=== PATIENT | female | born 1955 | race Caucasian/White ===

== ENCOUNTER 2020-05-10 15:09 | Outpatient (REF) | payer MEDICARE, SELFPAY | END 2020-05-10 15:10 | disposition home or self-care (01) | LOC: LBN 15:09 | PROVIDERS: Visit Provider Physician Assistant | DX: N39.0 Urinary tract infection, site not specified (principal) | CPT/HCPCS: 87086 ==

== ENCOUNTER 2020-06-15 03:25 | Outpatient (CLI) | payer MEDICARE, SELFPAY ==
[2020-06-15 12:34] LABS: Calculated LDL 196 mg/dL (<100); Cholesterol 295 mg/dL (<200); HDL Cholesterol 64 mg/dL (40-60); Triglyceride 177 mg/dL (<150)
== END 2020-06-15 03:26 | disposition home or self-care (01) ==
LOC: LOS 03:25
PROVIDERS: PCP Nurse Practitioner Family; Visit Provider Nurse Practitioner Family
DX: E78.5 Hyperlipidemia, unspecified (principal)
CPT/HCPCS: 36415; 80061

== ENCOUNTER → 2020-09-27 08:52 | Outpatient (BNVA) | payer MEDICARE, SELFPAY | PROVIDERS: PCP Nurse Practitioner Family; Referring Provider Nurse Practitioner Family; Visit Provider Surgery | DX: R69 Illness, unspecified (principal) ==

== ENCOUNTER 2020-09-27 10:34 | Outpatient (REF) | payer MEDICARE, SELFPAY ==
[2020-09-27 11:17] LABS: Abs Immature Grans 0.02 10^3/uL (0.0-0.06); Absolute Basophil Count 0.04 10^3/uL (0.0-0.2); Absolute Eosinophil Count 0.16 10^3/uL (0.0-0.7); Absolute Lymphocyte Count 1.41 10^3/uL (1.2-3.4); Absolute Monocyte Count 0.48 10^3/uL (0.1-0.8); Absolute Neutrophil Count 3.49 10^3/uL (1.2-6.7); Basophils % 0.7; Eosinophils % 2.9; HCT 39.9 % (36.0-46.0); HGB 13.6 g/dL (11.2-15.7); Immature Grans % 0.4; Lymphocytes % 25.2; MCH 33.5 pg (27.0-33.0); MCHC 34.1 % (32.0-36.0); MCV 98.3 fL (80-95); MPV 10.1 fL (8.0-11.0); Monocytes % 8.6; Neutrophils % 62.2; Nucleated RBC 0 %; Platelet Count 245 10^3/uL (130-400); RBC 4.06 10^6/uL (3.93-5.22); RDW 11.9 % (11.7-14.6); RDW-SD 43.1 fL
[2020-09-27 11:30] LABS: Hemoglobin A1C 5.3 % (<5.7)
[2020-09-27 11:36] LABS: ALT 29 U/L (14-59); AST 26 U/L (15-37); Alkaline Phosphatase 65 U/L (46-116); Anion Gap 9.6 mmol/L (3-11); BUN 17 mg/dL (7-18); Bilirubin, Total 0.6 mg/dL (0.2-1.0); CO2 27.4 mmol/L (21.0-32.0); CREATININE 0.9 mg/dL (0.55-1.02); Chloride 105 mmol/L (98-107); Glucose 96 mg/dL (74-106); Potassium 4.1 mmol/L (3.5-5.1); Sodium 142 mmol/L (136-145); Total Protein 7.1 g/dL (6.4-8.2)
== END 2020-09-27 10:35 | disposition home or self-care (01) ==
LOC: LBN 10:34
PROVIDERS: Surgery; PCP Nurse Practitioner Family; Visit Provider Nurse Practitioner Family
DX: E78.5 Hyperlipidemia, unspecified (principal); R63.4 Abnormal weight loss; N39.41 Urge incontinence; K57.30 Diverticulosis of large intestine without perforation or abscess without bleeding; N36.2 Urethral caruncle; R79.89 Other specified abnormal findings of blood chemistry
CPT/HCPCS: 80053; 83036; 84443; 85025

== ENCOUNTER 2020-09-27 11:37 | Outpatient (CLI) | payer MEDICARE, SELFPAY ==
--- NOTE | 2020-09-27 10:09 | DI.RAD_ITS ---
Exam(s) XR CHEST 2V PA LATERAL EXAM: XR CHEST 2V PA LATERAL CLINICAL HISTORY: cough/smoke exposure/unexplained wt loss, R05, Z77.22. TECHNIQUE: 2D digital imaging was performed. COMPARISON: No exams were available for comparison FINDINGS: Heart size is normal. Retrocardiac hiatal hernia moderate size is noted. There are Sy rods in the thoracolumbar spine. There is oblique platelike atelectasis in the right lung base. Probable extension of the cardiac fat pad at this level. Nodular density noted in the left lung base although there is possibly this may be the breast nipple. IMPRESSION: Oblique platelike atelectasis in the right lung base. Possible nodule left lung base versus breast nipple. Recommend repeating the frontal view with metal lic nipple markers in place. DATA REPOSITORY: RADIATION DOSE DELIVERED:
== END 2020-09-27 11:57 ==
PROVIDERS: PCP Nurse Practitioner Family; Visit Provider Surgery
DX: R05 Cough (principal); Z77.22 Contact with and (suspected) exposure to environmental tobacco smoke (acute) (chronic); R63.4 Abnormal weight loss; R19.4 Change in bowel habit
CPT/HCPCS: 99214; 71046

== ENCOUNTER 2020-09-29 07:03 | Day surgery (SDC) | payer MEDICARE, SELFPAY ==
[2020-09-29 07:22] VITALS: BP 134/83; PULSE 59; RESP 16; TEMP 36.6; O2SAT 98
[2020-09-29] MEDS: Lactated Ringers 1,000 ML 80 ML IV (07:54)
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
[2020-09-29 08:29] VITALS: BMI 23.2
--- NOTE | 2020-09-29 08:33 | PDOC.DSDIS_ITS ---
Discharge Plan Disposition Patient Disposition: HOME Condition: Good Discharge Details Reason For Visit: colon scope Attending Provider: Neva Velasco Primary Care Provider: Nelson Tolentino Home Meds and New Rx's Prescriptions: No Action omega-3 fatty acids [Fish Oil Concentrate] 1,000 mg capsule 1,000 mg PO DAILY RF: 0 citalopram 20 mg tablet 20 mg PO DAILY Qty: 90 RF: 4 ibuprofen 200 MG capsule 200 mg PO 3 TABS PRN RF: 0 acetaminophen 500 MG tablet 500 mg PO PRN RF: 0 simvastatin 20 mg tablet 20 mg PO DAILY Qty: 90 RF: 4 Discharge Instructions Additional Instructions: DSU Colonoscopy Post- Op Instructions Instructions for Everyone who is given Anesthesia: For your safety, please do the following for the next twenty-four (24) hours: *Do Not operate a motor vehicle (car, truck, motorcycle, etc.) *Do Not drink alcoholic beverages or use any recreational drugs for the first 24 hours or while taking pain medications. The medications in your body may have a reaction that can be dangerous. *Do Not make any important decisions or sign any important papers. Findings: x5 polyps diverticula- mild No ASA/NSAID's for 72 hrs. Follow up:Repeat scope in 5 yrs time 1. No lifting over 20 pounds or strenuous activity for the first 24 hours after your procedure. After 24 hours there are no restrictions on your activity but you may feel fatigued for a few days. 2. After you arrive home you may have a light meal and return to your normal diet as you can tolerate it without feeling sick to your stomach. 3. You may have a bloated, gaseous feeling in your belly (abdomen) after a colonoscopy. Passing gas and belching will help. Walking or lying down on your left side with your knees flexed may relieve the discomfort. Call the office at [phone] (Office) or [phone] (Hospital) right away if you notice any of the following: a.Vomiting of blood or ?coffee ground stools?. b.Rectal bleeding 1Tbsp, blood clots or continuous bleeding. c.Severe belly (abdominal) pain. d.A hard distended belly (abdomen) and an inability to pass gas. 4. Please don?t expect to have a normal BM (bowel movement) for 2-3 days after your procedure. 5. If there are questions regarding the findings of your procedure, please contact your doctor 6. If you are unable to contact your doctor with a problem, contact the hospital at [phone]. 7. Continue all your regular medications unless directed otherwise. I understand the above instructions and have no questions. Signature of Patient or Adult Escort Name of Responsible Adult Escort Signature of Nurse Date/Time Activity:: see above Shower/Bathe:: 24 hours Diet:: see above Discharge Orders Discharge Orders: Discharge Order (Routine); Ordered 09/28/20 Ordered By: Neva Velasco DS: Diagnosis Discharge Diagnosis (1) Diverticula of colon: Status: Acute (2) Adenomatous polyps: Status: Acute
--- NOTE | 2020-09-29 08:34 | W.COLOREPORT ---
Date of service: 09/29/20 Time of Service: 09:00 Colonoscopy Report Date of procedure: 09/29/20 Pre-op diagnosis general: weight loss/change in bowel habits Procedure: polypectomy w/ cold forcept x5 Surgeon: Neva Velasco Anesthesia Type: General:No Airway Estimated blood loss (mL): 1 Pathology: other Complications: None Disposition: same day Prep: Miralax/Dulcolax Retraction Time: 12 Procedure Description: After informed consent was obtained the patient was taken to the procedure room and placed in a left decubitous position. Monitors were applied and a time out was done. The patients name, date of , procedure, allergies to medications and metal in their body was reviewed. The patient was then sedated. Once sedated and comfortable a rectal exam was done. External hemorrhoidal tags. No without internal exam revealed a normal sphincter tone and no palpable masses. The scope was then introduced and retrofelexed. internal hemorrhoids were identified. The scope was then advanced to the cecum w/out difficulty. The TI and appendiceal orifice were identified. The prep was good . The scope was then slowly retracted over 12 minutes back into the rectum. There are x3 polyps at 80 cm removed with a single bite of cold forcep. These polyps are all flat less than 5 mm. All specimen is retrieved and no bleeding is noted. There is a less than 5 mm flat polyp in the rectum that is removed with cold biopsy forcep. There is a 1.75 mm polyp that is flat and at 30 cm and is removed with 2 bites of cold forcep. She has minor diverticular disease that does carry all the way over to the cecum. There is no signs of bleeding or infection. She has minor external hemorrhoids and no internal hemorrhoids. There is no signs of active bleeding or infection. Random biopsies are taken in the cecum 40 cm in the rectum. The scope was removed and the patient was woken up and taken back to Same day surgery in stable condition. The patient tolerated the procedure well and there were no immediate complications. Follow up: The patient should follow up in 5 years unless they develop changes in bowel habits or other new gastrointestinal complaints.
--- NOTE | 2020-09-29 08:50 | BOWEL_PTH ---
PATIENT: Allie Moeller LOC: [facility] U#:[id number] AGE/SX: 65/F ROOM: RE09/29/[address]: Neva Velasco : 1955 BED: DIS: 09/29/2020 SPEC #: [id number] RECD: 09/29/20 11:49 STATUS: BERNADETTE REChaparro #: [id number] FELICIA: 09/29/20 08:[address]: Neva Velasco DEPT: Surgical Specimen RECD BY: Bridget Matthews ENTERED: 09/29/20 11:55 SP TYPE: Bowel OTHR DR: Nelson Tolentino, LUMP ROLLER Tissues: 1 - BIOPSY BOWEL 2 - BIOPSY BOWEL 3 - BIOPSY BOWEL 4 - BIOPSY BOWEL 5 - BIOPSY BOWEL 6 - BIOPSY BOWEL Procedures: GROSS AND MICRO LEVEL 4 Comments: [id number]
[2020-09-29 09:15] VITALS: BP 97/63; PULSE 58; RESP 16; TEMP 36.3; O2SAT 98
--- NOTE | 2020-09-29 09:21 | W.ANESPOSTOP ---
Postoperative Evaluation Date, Time and Location Date Performed: 09/29/20 Time Performed: : Patient Location: Day Surgery Unit Vital Signs Most Recent Imported Vital Signs: Most Recent Vital Signs Temp Pulse Resp BP Pulse Ox 36.3 C L 58 L 16 97/63 L 98 09/29/20 09:15 09/29/20 09:15 09/29/20 09:15 09/29/20 09:15 09/29/20 09:15 Pain Score Most Recent Pain Score: Most Recent Pain Score Pain Level 0 09/29/20 09:15 Assessment Mental Status: Awake (Alert & Oriented to Patient Baseline) Airway and Respiratory Function: Patent airway with normal (patient baseline) respiratory exam Cardiovascular Function: Hemodynamically Stable Hydration Status: Adequately Hydrated Nausea & Vomiting: No Nausea or Vomiting Pain: Pt. Denies Any Pain Peripheral Nerve Block: Patient did not receive a nerve block
[2020-09-29 09:42] VITALS: RESP 16; TEMP 36.1; O2SAT 100
[2020-09-29 09:44] VITALS: BP 122/70; PULSE 47; RESP 16; TEMP 36.2; O2SAT 100
== END 2020-09-29 10:45 | disposition home or self-care (01) ==
PROVIDERS: PCP Nurse Practitioner Family; Visit Provider Surgery
PROC: 0DJD8ZZ Inspection of Lower Intestinal Tract, Via Natural or Artificial Opening Endoscopic (ICD-10-PCS; CPT 45378; principal; 2020-09-29 08:15)
DX: R19.4 Change in bowel habit (principal); R63.4 Abnormal weight loss; D12.8 Benign neoplasm of rectum; D12.5 Benign neoplasm of sigmoid colon; D12.4 Benign neoplasm of descending colon
CPT/HCPCS: 45380; 88305

== ENCOUNTER 2020-11-03 04:42 | Outpatient (CLI) | payer MEDICARE, SELFPAY ==
--- NOTE | 2020-11-03 07:15 | DI.RAD_ITS ---
Exam(s) XR CHEST 1V IN DI DEPT EXAM: XR CHEST 1V IN DI DEPT CLINICAL HISTORY: f/u from 09/27/20 xray, w/metallic nipple markers,R93.89,? NODULE. TECHNIQUE: 2D digital imaging was performed. COMPARISON: CR XR CHEST 2V PA LATERAL from 09/27/2020 FINDINGS: Sy rods are again noted. Heart size remains normal. Moderate size retrocardiac hiatal hernia noted, unchanged in size. No new infiltrates nor pleural effusions. No pulmonary edema. No pneumothorax IMPRESSION: No acute pulmonary findings on this single AP portable view of the chest. Hiatal hernia again noted, unchanged in size. DATA REPOSITORY: RADIATION DOSE DELIVERED: All CT scans at this facility use at least one of these dose optimization techniques: automated exposure control; mA and/or kV adjustment per patient size (includes targeted e xams where dose is matched to clinical indication); or iterative reconstruction.
== END 2020-11-03 05:02 ==
PROVIDERS: PCP Nurse Practitioner Family; Visit Provider Surgery
DX: K44.9 Diaphragmatic hernia without obstruction or gangrene; R93.89 Abnormal findings on diagnostic imaging of other specified body structures
CPT/HCPCS: 71045

== ENCOUNTER 2021-01-02 03:49 | Outpatient (CLI) | payer MEDICARE, SELFPAY ==
[2021-01-02 13:14] LABS: Calculated LDL 172 mg/dL (<100); Cholesterol 278 mg/dL (<200); HDL Cholesterol 75 mg/dL (40-60); Triglyceride 157 mg/dL (<150)
== END 2021-01-02 03:50 | disposition home or self-care (01) ==
LOC: LOS 03:51
PROVIDERS: PCP Nurse Practitioner Family; Visit Provider Nurse Practitioner Family
DX: E78.2 Mixed hyperlipidemia (principal)
CPT/HCPCS: 36415; 80061

== ENCOUNTER 2021-06-11 19:17 | Outpatient (REF) | payer MEDICARE, SELFPAY | END 2021-06-11 19:18 | disposition home or self-care (01) | LOC: LBN 19:17 | PROVIDERS: PCP Nurse Practitioner Family; Visit Provider Nurse Practitioner Family | DX: N39.41 Urge incontinence (principal) | CPT/HCPCS: 87077; 87086; 87186 ==

== ENCOUNTER 2021-07-11 00:58 | Outpatient (CLI) | payer MEDICARE, SELFPAY ==
--- NOTE | 2021-07-11 15:43 | DI.MAMMO_ITS ---
Exam(s) MAMMO SCREENING EXAM: MAMMO SCREENING CLINICAL HISTORY: screening,z12.39. TECHNIQUE: Bilateral full field digital CC and MLO mammographic images were obtained with 3D tomosyn thesis and utilizing computer aided detection (CAD). COMPARISON: Prior mammograms were reviewed, the most recent being September 2017. FINDINGS: The fibroglandular tissue pattern is again noted be somewhat dense, this decreasing the sensitivity m ammogram for finding in lesions There are no CAD designations. There are no new spiculated masses nor malignant appearing microcalcification groups. There is no significant architectural distortion nor skin thickening-retraction. IMPRESSION: Dense bilateral fibroglandular tissue. No obvious radiographic evidence of malignancy nor significan t change compared to prior mammograms. BI-RADS Category 2 - Benign Findings Breast Density - Category C - Heterogeneously dense Breast density Category C or D implies that the patient has dense breast tissue. Dense breast tissue can make it harder to find cancer on a mammogram. Dense breast tissue is also associated with an incr eased risk of breast cancer. This information about the result of the mammogram report was provided to the patient to raise their awareness. Use this report when you speak with the patient about their risks for breast cancer, which includes their family history. At that time, you may recommend additional screening tests (Ultrasoun d or MRI) as these tests may add significant information. A negative radiographic report should not delay biopsy if a dominant or clinically suspicious mass is present. Up to ten percent of cancers are not identified on mammography. A negative report may reinforce clinical impression. Adenosis and dense breasts may obscure an underlying neoplasm. False positive reports average 6 to 10%. Patient will receive a letter notifying them of these results.
== END 2021-07-11 01:18 ==
PROVIDERS: PCP Nurse Practitioner Family; Visit Provider Nurse Practitioner Family
DX: Z12.31 Encounter for screening mammogram for malignant neoplasm of breast (principal)
CPT/HCPCS: 77063; 77067

== ENCOUNTER → 2021-08-02 01:57 | Outpatient (CLI) | payer MEDICARE, SELFPAY ==
--- NOTE | 2021-08-02 06:30 | DI.US_ITS ---
Exam(s) US PELVIS TRANSVAGINAL EXAM: US PELVIS TRANSVAGINAL CLINICAL HISTORY: object in vagina vs mass in pelvis,? LLQ bump,remnant of suture,r19.04 TECHNIQUE: Ultrasound performed using standard protocol. COMPARISON: No exams were available for comparison FINDINGS: Pelvic ultrasound was performed transabdominally and transvaginally. The patient has reportedly had prior hysterectomy and oophorectomy. No vaginal mass or foreign body identified. No mass in the pel vis. Unremarkable appearance of the kidneys. IMPRESSION: Negative ultrasound examination post hysterectomy and oophorectomy. DATA REPOSITORY:
== END ==
PROVIDERS: PCP Nurse Practitioner Family; Visit Provider Obstetrics & Gynecology Gynecology
DX: Z90.710 Acquired absence of both cervix and uterus; Z90.722 Acquired absence of ovaries, bilateral; R19.04 Left lower quadrant abdominal swelling, mass and lump
CPT/HCPCS: 76830; 76856

== ENCOUNTER 2021-11-12 03:51 | Outpatient (CLI) | payer MEDICARE, SELFPAY ==
[2021-11-12 12:59] LABS: Calculated LDL 141 mg/dL (<100); Cholesterol 236 mg/dL (<200); HDL Cholesterol 70 mg/dL (40-60); Triglyceride 126 mg/dL (<150)
== END 2021-11-12 03:52 | disposition home or self-care (01) ==
LOC: LOS 03:51
PROVIDERS: PCP Nurse Practitioner Family; Visit Provider Nurse Practitioner Family
DX: E78.2 Mixed hyperlipidemia (principal)
CPT/HCPCS: 36415; 80061

== ENCOUNTER 2022-01-22 00:38 | Emergency (ER) | payer MEDICARE, SELFPAY ==
[2022-01-22] VITALS (41 sets, daily range): BP systolic 110–135; BP diastolic 63–104; PULSE 57–75; RESP 9–25; TEMP 36; O2SAT 93–98
--- NOTE | 2022-01-22 00:45 | RT.EKG_ITS ---
APPROVED REPORT Exam: Resting ECG Reason for Exam: dry heaves Patient Location: E HR:76 bpm ECG Measurements Heart Rate 76 AXIS MD 144 P 58 QRSd 99 QRS 79 QT 412 T -70 QTc 461 Conclusion Sinus rhythm...normal P axis, V-rate 60- 99 Atrial premature complexes...SV complexes w/ short R-R intvls Nonspecific T abnormalities, diffuse leads...T <-0.10mV, ant/lat/inf PHysician: Sinus rhythm, rate 76, intervals stable, inverted T waves in lead III, aVF, V3, V4. No si gnificant ST elevation or depression. No STEMI. No prior EKG for comparison
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
--- NOTE | 2022-01-22 01:00 | DI.CT_ITS ---
Exam(s) CT THORAX ABD/PEL CTA EXAM: CT THORAX ABD/PEL CTA CLINICAL HISTORY: epigastric pain/lump, r/o anyurism. TECHNIQUE: Imaging Protocol: Axial CT angiography was performed with multi-slice acquisition and m ulti-planar and/or 3D reconstructions. CONTRAST MATERIAL: Intravenous: Omnipaque 350 contrast volume:100 mL Oral: No COMPARISON: No exams were available for comparison FINDINGS: CHEST: Tracheobronchial tree: Patent where visualized. Pulmonary parenchyma: There is dependent atelectasis. No focal consolidating infiltrate is identifie d. No architectural distortion. Pulmonary Arteries: No evidence of filling defect to suggest pulmonary emboli. Mediastinum and Doreen: No dominant adenopathy or fluid collection. There is a large hiatal hernia. Visualized thyroid: Unremarkable. Pleura: No effusion or pneumothorax. Heart: The heart is not dilated. No coronary artery calcifications are seen. No pericardial effusion. Aorta: Thoracic aorta non-dilated. Atherosclerosis is present. No evidence of dissection. Soft Tissues: Unremarkable. Bones: Within normal limits for the patient's age. ABDOMEN AND PELVIS: Abdomen: Celiac axis/mesenteric arteries: No evidence of occlusion or significant stenosis. Renal Arteries: No evidence of occlusion or significant stenosis. There is a single renal artery per fusing each kidney. Aorta: No evidence of occlusion or significant stenosis. No aneurysm or dissection. Atherosclerosi s is present. Pelvis: Iliac Arteries: No evidence of occlusion or significant stenosis. Common Femoral Arteries: No evidence of occlusion or significant stenosis. ABDOMEN: Liver: Normal density. No measurable mass. Gallbladder and Biliary Tract: No radiodense calculus or dilation. Pancreas: Normal density, no abnormal calcifications or inflammatory process. Spleen: Normal. Adrenals: No masses seen. Kidneys: Normal size, contour and axis. No radiodense stones or obstructive uropathy. No masses seen. Bowel: No obstruction or bowel wall thickening. No evidence of appendicitis. There are diverticula s cattered throughout the colon, but no evidence of acute diverticulitis. Peritoneal Cavity: No ascites, collection or mesenteric inflammatory response. No free air. Lymph Nodes: Within normal limits. Bones: Within normal limits for the patient's age. There are orthopedic rods in the posterior spine spanning the lower thoracic and upper lumbar spine. There is an old L1 compression fracture deformity . Soft Tissues: Unremarkable. PELVIS: Bladder: Symmetric distention, no gross wall thickening. Reproductive Organs: Status post hysterectomy. Lymph Nodes: Within normal limits. Bones: Within normal limits for the patient's age. IMPRESSION: 1. No evidence of pulmonary embolism, thoracic aortic dissection or aneurysm. 2. No evidence of abdominal aortic aneurysm or dissection. No significant arterial stenosis. 3. No acute pulmonary process. 4. No acute abdominal or pelvic process. RADIATION DOSE DELIVERED: 649.13mGy.cm Total DLP DATA REPOSITORY: All CT scans at this facility are submitted to the National Radiology Data Registry (NRDR) Dose Index Registry (DIR) with the [employer] (ACR). RADIATION OPTIMIZATION: All CT scans at this facility use at least one of these dose optimization te chniques: automated exposure control; mA and/or kV adjustment per patient size (includes targeted exa ms where dose is matched to clinical indication); or iterative reconstruction.
[2022-01-22 01:14] LABS: Abs Immature Grans 0.02 10^3/uL (0.0-0.06); Absolute Basophil Count 0.07 10^3/uL (0.0-0.2); Absolute Eosinophil Count 0.53 10^3/uL (0.0-0.7); Absolute Lymphocyte Count 3.05 10^3/uL (1.2-3.4); Absolute Monocyte Count 0.57 10^3/uL (0.1-0.8); Absolute Neutrophil Count 2.23 10^3/uL (1.2-6.7); Basophils % 1.1; Eosinophils % 8.2; HCT 42.3 % (36.0-46.0); Immature Grans % 0.3; Lymphocytes % 47.1; MCH 34.2 pg (27.0-33.0); MCHC 35.5 % (32.0-36.0); MCV 97 fL (80-95); MPV 9.3 fL (8.0-11.0); Monocytes % 8.8; Neutrophils % 34.5; Platelet Count 286 10^3/uL (130-400); RBC 4.38 10^6/uL (3.93-5.22); RDW-SD 42.8 fL; WBC 6.47 10^3/uL (4.4-10.8)
[2022-01-22] MEDS: Normal Saline 500 ML IV (01:19)
[2022-01-22] MEDS: Ondansetron 4 MG/2 ML VIAL IVP (01:20)
[2022-01-22 01:33] LABS: ALT 21 U/L (14-59); AST 19 U/L (15-37); Alkaline Phosphatase 84 U/L (46-116); Anion Gap 9.1 mmol/L (3-11); BUN 18 mg/dL (7-18); Bilirubin, Total 0.4 mg/dL (0.2-1.0); CO2 28.9 mmol/L (21.0-32.0); CREATININE 0.8 mg/dL (0.55-1.02); Calcium 8.9 mg/dL (8.5-10.1); Chloride 103 mmol/L (98-107); Estimated GFR 80.71 (mL/min/1.73m2); Glucose 115 mg/dL (74-106); Lipase 107 U/L (73-393); Potassium 4.1 mmol/L (3.5-5.1); Sodium 141 mmol/L (136-145); Total Protein 7.7 g/dL (6.4-8.2); Troponin I < 50 ng/L (<or=60)
[2022-01-22] MEDS: Omnipaque 350 MG/ML 100 ML BTL IJ (02:25)
[2022-01-22 02:44] LABS: Bilirubin Negative (Negative); Blood Small (Negative); Clarity Clear (Clear); Glucose Negative (Negative); Ketones Negative (Negative); Leukocyte Esterase Negative (Negative); Nitrite Negative (Negative); Specific Gravity 1.015 (1.005-1.025); Urobilinogen 0.2 EU/dL (Up TO 0.2)
[2022-01-22 02:55] LABS: Bacteria Few HPF (Negative); C & S Indicated? No; Crystals Negative HPF (Negative); Epithelial Cells Rare HPF (Negative); Mucus Trace (Negative); WBC 0-2 HPF (0-5)
--- NOTE | 2022-01-22 03:27 | DI.VRAD_ITS ---
PROCEDURE INFORMATION: Exam: CTA Chest With Contrast CTA Abdomen and Pelvis With Contrast Exam date and time: 01/22/2022 2:18 AM Age: 66 years old Clinical indication: Other: Epigastric pain/lump, R/O anyurism; Abdominal pain; Prior surgery; Surgery date: 6+ months; Surgery type: Spinal surgery, appendectomy TECHNIQUE: Imaging protocol: Computed tomographic angiography of the chest with contrast. Computed tomographic angiography of the abdomen and pelvis with contrast. 3D rendering (Not supervised by radiologist): MIP and/or 3D reconstructed images were created by the technologist. Radiation optimization: All CT scans at this facility use at least one of these dose optimization techniques: automated exposure control; mA and/or kV adjustment per patient size (includes targeted exams where dose is matched to clinical indication); or iterative reconstruction. Contrast material: OMNI 350; Contrast volume: 100 ml; Contrast route: INTRAVENOUS (IV); COMPARISON: CR XR CHEST 1V IN DI DEPT 11/03/2020 8:28 AM FINDINGS: VASCULATURE: Pulmonary arteries: Normal. No pulmonary emboli. Aorta: No aortic aneurysm. No aortic dissection. Mild plaque. Celiac trunk and mesenteric arteries: No occlusion or significant stenosis. Renal arteries: No occlusion or significant stenosis. Right iliac arteries: No occlusion or significant stenosis. Left iliac arteries: No occlusion or significant stenosis. CHEST: Lungs: Dependent ground-glass opacity noted in the left lower lobe. No specific consolidation. No bronchiectasis. No significant endobronchial mucus. Pleural spaces: Unremarkable. No pneumothorax. No pleural effusion. Heart: No cardiomegaly. No pericardial effusion. No coronary artery calcifications. Diaphragm: Moderate hiatal hernia. ABDOMEN AND PELVIS: Liver: No mass. Gallbladder and bile ducts: Unremarkable. No calcified stones. No ductal dilation. Pancreas: Unremarkable. No mass. No ductal dilation. Spleen: Normal early splenic enhancement. Adrenal glands: Unremarkable. No mass. Kidneys and ureters: Normal kidneys. No hydronephrosis. Stomach and bowel: Unremarkable stomach. Nondilated small bowel. No inflammatory changes observed around the colon. Scattered colonic diverticulosis noted. Appendix: No evidence of appendicitis. Intraperitoneal space: No free fluid. No free air. No abscess. Urinary bladder: Unremarkable. No mass. Reproductive: The uterus is surgically absent. Negative for adnexal mass or cyst. Lymph nodes: Unremarkable. No enlarged lymph nodes. Bones/joints: Posterior fusion noted T9-L2. Fracture noted at T12. Exaggerated thoracic kyphosis. Moderate degenerative changes midthoracic spine. Moderate degenerative changes with endplate sclerosis L2-L3, inferior to the fusion. Transitional L5. Soft tissues: Unremarkable. IMPRESSION: 1. No pulmonary embolism. 2. No aortic dissection. 3. No aortic aneurysm. 4. No significant arterial stenosis. Dictated and Authenticated by: Tyrese Arnold MD. Ordering:CATALINO Snyder MD
--- NOTE | 2022-01-22 03:30 | RT.EKG_ITS ---
APPROVED REPORT Exam: Resting ECG Reason for Exam: chest pain Patient Location: E HR:63 bpm ECG Measurements Heart Rate 63 AXIS [place] 140 P 21 QRSd 94 QRS 52 QT 442 T -36 QTc 449 Conclusion Sinus rhythm...normal P axis, V-rate 60- 99 Atrial premature complex...SV complex w/ short R-R interval Nonspecific T abnormalities, diffuse leads...T <-0.10mV, ant/lat/inf Physician: Inverted t waves unchanged, no stemi, stable
[2022-01-22 04:36] LABS: Troponin I < 50 ng/L (<or=60)
== END 2022-01-22 05:45 | disposition home or self-care (01) ==
PROVIDERS: Emergency Provider Student in an Organized Health Care Education/Training Program; PCP Nurse Practitioner Family
DX: R10.13 Epigastric pain (principal); K59.00 Constipation, unspecified; Z90.49 Acquired absence of other specified parts of digestive tract; Z77.22 Contact with and (suspected) exposure to environmental tobacco smoke (acute) (chronic); R11.0 Nausea; R07.9 Chest pain, unspecified
CPT/HCPCS: 71275; 80053; 83690; 93005; 93308; 96361; 96374; 99285; 74174; 81003; 81015; 84484; 85025; 93010; J2405; J3490

== ENCOUNTER 2024-08-11 02:07 | Outpatient (CLI) | payer MEDICARE, SELFPAY ==
[2024-08-11 12:43] LABS: Hemoglobin A1C 5.1 % (<5.7)
[2024-08-11 12:53] LABS: Anion Gap 7.1 mmol/L (3-11); BUN 19 mg/dL (7-18); CO2 28.9 mmol/L (21.0-32.0); CREATININE 0.8 mg/dL (0.55-1.02); Calcium 9.2 mg/dL (8.5-10.1); Calculated LDL 166 mg/dL (<100); Chloride 103 mmol/L (98-107); Cholesterol 271 mg/dL (<200); Estimated GFR 79.22 (mL/min/1.73m2); Glucose 95 mg/dL (74-106); HDL Cholesterol 80 mg/dL (>or=50); Potassium 3.9 mmol/L (3.5-5.1); Sodium 139 mmol/L (136-145); Triglyceride 128 mg/dL (<150)
== END 2024-08-11 02:08 | disposition home or self-care (01) ==
PROVIDERS: PCP Nurse Practitioner Family; Visit Provider Nurse Practitioner Family
DX: Z13.1 Encounter for screening for diabetes mellitus (principal); Z13.6 Encounter for screening for cardiovascular disorders
CPT/HCPCS: 36415; 80048; 80061; 83036